=== PATIENT | female | born 1990 | race Caucasian/White ===

== ENCOUNTER 2024-08-15 10:21 | Inpatient (IN) | payer MEDICAID, SELFPAY ==
--- NOTE | 2024-08-12 16:38 | ESHP_ITS ---
RE: TAM SAGE : 1990 DATE OF ADMISSION: 08/15/2024 HISTORY OF PRESENT ILLNESS: This is a 34-year-old 6 para 2-0-3-2 with a due date of 08/21 with intrauterine at 39 weeks and one day on August 15, who presents for repeat delivery. She is multiparous and also desires voluntary sterilization. Her care was complicated by new onset of hyperthyroidism in the first trimester, which resulted in multiple hospital treatments for hyperemesis gravidarum. She was initially put on PTU in the first trimester and then switched over to methimazole where she has been under the care of an coke still cleaner. She is currently taking methimazole 2.5 mg daily. She has had adequate interval growth throughout the with the most recent ultrasound on 07/24 showing growth at the 37th percentile. MEDICATIONS: 1. vitamin 1 p.o. daily 2. Aspirin 81 mg one p.o. daily 3. Methimazole 2.5 mg one p.o. daily 4. Ferrous sulfate 325 mg one p.o. daily PAST MEDICAL HISTORY: Hyperthyroidism, hyperemesis gravidarum, iron-deficiency anemia, recurrent loss. PAST SURGICAL HISTORY: delivery 08/2023. FAMILY HISTORY: Maternal grandmother, breast cancer, hypertension, and obesity. Mother diabetes, depression, anxiety, migraine headaches, hypertension, and obesity. OBSTETRIC HISTORY: 2007, 5 weeks spontaneous AB, no D and C. 2014, 40-week normal vaginal delivery, 7-pound male. No complications. 2021, 5 weeks spontaneous AB, no D and C. 08/2022, 5 weeks spontaneous AB, no D and C. 09/08/2023, 40-week, delivery, 8 pound, 15-ounce male. No complications. REVIEW OF SYSTEMS: She denies any chest pain, palpitations, cough, fever, shortness of breath, or lower extremity pain. PHYSICAL EXAMINATION: VITAL SIGNS: Blood pressure 110/74, heart rate 84, respirations 18, temperature 98.6. HEENT: Oropharynx and sclerae are clear. LUNGS: Clear to auscultation bilaterally. HEART: Regular rate and rhythm. ABDOMEN: Gravid term size. Old Pfannenstiel scar noted. PELVIC: Deferred. EXTREMITIES: Nontender. SKIN: No gross rashes or lesion. NEUROLOGIC: No focal deficit. ASSESSMENT: Intrauterine at 39 weeks and one day. Previous delivery. Elects repeat delivery. Multiparity desires voluntary sterilization. PLAN: Repeat delivery and bilateral tubal ligation. Informed consent was obtained. The patient was made aware of the risks, complications, alternatives, and benefits of the proposed procedure and she agrees. She is aware of the failure rate and the increased risk of tubal ectopic gestation if occurs. She is aware that vasectomy has a lower failure rate but her male partner declines that option. DT: 12:39:47 TT: 15:34:00 Ref: [id number] - TID: [id number] [facility]
[2024-08-14 13:12] LABS: Basophils # (Auto) 0.1 Thou/mm3 (0.0-0.2); Basophils % (Auto) 1 % (0-2.5); Eosinophils # (Auto) 0.1 Thou/mm3 (0.0-0.5); Eosinophils % (Auto) 2 % (0-10); Hematocrit 34.9 % (36.0-46.0); Hemoglobin 10.7 g/dL (12.0-16.0); Immature Granulocytes % (Auto) 1 % (0-0); Immature Granulocytes Auto 0.11 Thou/mm3 (0.00-0.00); Lymphocytes # (Auto) 1.4 Thou/mm3 (1.0-4.8); Lymphocytes % (Auto) 17 % (10-50); Mean Corpuscular HGB Conc 30.7 g/dl (31.0-37.0); Mean Corpuscular Hemoglobin 24.3 pg (25.0-35.0); Mean Corpuscular Volume 79 fL (80-100); Monocytes # (Auto) 0.6 Thou/mm3 (0.0-0.8); Monocytes % (Auto) 7 % (0-12); Neutrophils # (Auto) 5.8 Thou/mm3 (1.8-7.7); Neutrophils % (Auto) 72 % (37-80); Nucleated Red Blood Cell % 0 /100 WBC (0); Platelet Count 187 Thou/mm3 (140-440); RDW Standard Deviation 62.1 fL (36.4-46.3); Red Blood Count 4.41 Miln/mm3 (4.00-5.20)
[2024-08-14 13:40] LABS: INR 0.9 (0.9-1.3); Partial Thromboplastin Time 23.7 Seconds (22.0-36.0); Prothrombin Time 10.2 Seconds (9.0-12.2)
[2024-08-14 16:00] LABS: Alanine Aminotransferase 10 U/L (10-49); Albumin, Serum 3.7 gm/dL (3.5-5.0); Albumin/Globulin Ratio 1.3 (1.2-2.2); Alkaline Phosphatase 189 U/L (46-116); Anion Gap 10 (7-16); Aspartate Amino Transferase 17 U/L (0-34); BUN/Creatinine Ratio 10 Ratio (12-20); Bilirubin,Total 0.9 mg/dL (0.3-1.2); Blood Urea Nitrogen 6 mg/dL (9-23); Calcium 8.7 mg/dL (8.3-10.6); Calcium (Corrected) 8.9 mg/dL (8.5-10.1); Carbon Dioxide 22.1 mMol/L (20.0-31.0); Chloride 104 mMol/L (98-107); Creatinine (Component) 0.6 mg/dL (0.6-1.3); Globulin 2.9 gm/dL (2.3-3.5); Glucose 103 mg/dL (74-106); Osmolality,Calculated 269 (275-295); Potassium 3.7 mMol/L (3.4-5.1); Sodium 136 mMol/L (136-145); Thyroid Stimulating Hormone 0.74 uIU/mL (0.55-4.78); Total Protein 6.6 gm/dL (5.7-8.2); eGFR > 60 See Note
[2024-08-15] VITALS (32 sets, daily range): BP systolic 107–130; BP diastolic 68–88; PULSE 80–100; RESP 14–19; TEMP 36.4–36.9; O2SAT 96–100; BMI 34.4
[2024-08-15] MEDS: RINGERS LACTATED 1000 ML 1,000 ML 100 ML IV ×3 (11:04→12:19)
[2024-08-15] MEDS: FAMOTIDINE INJ 10 MG/ML VIAL 2 ML 20 MG IV (12:20)
[2024-08-15] MEDS: METOCLOPRAMIDE INJ 5 MG/ML VIAL 2 ML 10 MG IVP (12:21)
[2024-08-15] MEDS: ceFAZolin/D5W 2 GM IV 2 GM/100 ML BAG IV (12:21)
--- NOTE | 2024-08-15 13:37 | OBDSUM_ITS ---
Data (Loving) Data Hx Section: Yes : 6 Para: 2 Term: 2 : 0 : 3 Delivery Data (Loving) Labor Data ROM Date: 08/15/24 ROM Time: 13:00 Rupture Type: AROM Amniotic Fluid: Clear Delivery Data EDC: 08/21/24 EDC calculated by:: LMP/early US confirmation Labor Onset Stage 1 Date: 08/15/24 Labor Onset Stage 1 Time: 13:00 Labor Onset Stage 2 Date: 08/15/24 Labor Onset Stage 2 Time: 13:00 Delivery Date: 08/15/24 Delivery Time: 13:00 Gestational age (weeks): 39 Gestational age (days): 1 Placenta Delivery Date: 08/15/24 Placenta Delivery Time: 13:01 Delivered by: Neo Sesay Delivery nurse: Neisha Greenwood Other staff at delivery: Nursery Nurse Other staff at delivery: Vendor Relationship Manager Other staff at delivery: Other staff at delivery: Scrub Other staff at delivery: Alison Chavarria Other staff at delivery: Nneka Guerra Other staff at delivery: FELICIA Other staff at delivery: YARA Delivery Method Delivery: Delivery Type: Repeat Presentation: Vertex Position: OA Anesthesia Type Primary Anesthesia: Spinal Placenta Placenta Delivery: Manual EBL Estimated blood loss (ml): 500 Umbilical Cord Umbilical Vessels: 3 Nuchal Cord: None Additional Procedures Vacuum assisted delivery with Mity Vac (see OP note) Complications Complications: None [place] Data (Loving) Data Gender: Female Infant Weight Grams: 3245 1 Minute Total: 9 5 Minute Total: 9
--- NOTE | 2024-08-15 13:45 | PD.LDDS ---
DS: Providers Provider Date of admission: 08/15/24 10:21 Primary care physician: Drake Hidalgo MD Admitting Provider: Neo Sesay MD Attending Provider on Admission: Neo Sesay MD Attending Provider on DC: Neo Sesay MD Discharging Provider: Neo Sesay MD DS: Diagnosis Problem List Completed Was Problem List Reviewed/Reconciled?: Yes Summary/Hosp Course Time Spent with Patient Time attestation: Total time spent providing and/or coordinating discharge services: Exam Vital Signs Temp Pulse Resp BP Pulse Ox 98.2 F 93 16 116/80 98 08/15/24 10:57 08/15/24 10:54 08/15/24 10:57 08/15/24 10:54 08/15/24 12:25 Discharge Plan Plan Patient Disposition: HOME (Self Care) Patient condition on transfer: Stable Prescriptions/Referrals Prescriptions/Med Rec: New ibuprofen 600 mg tablet 600 mg PO Q6H PRN (Reason: pain) Qty: 30 0RF Continued vit-ferrous sulfat-FA 27 mg iron- 0.8 mg Tablet 1 tab PO QDAY ferrous sulfate 325 mg (65 mg iron) tablet 325 mg PO QDAY methimazole 5 mg tablet 5 mg PO QDAY Discontinued aspirin 81 mg tablet,delayed release (DR/EC) 81 mg PO QDAY Referrals: Drake Hidalgo MD [Primary Care Provider] - Patient/Caregiver Discharge Instructions Discharge Activity: activity as tolerated Other Discharge Activity Instructions:: Follow up office 1 week. Continue Methimazole at 2.5 mg daily Education Materials: Breast Care After , After a , C Section Dc Print Language: Liberian Stand Alone Forms: Benita Award Info., Patient Portal Info Letter Discharge Order Discharge Orders: Discharge (Routine); Ordered 08/17/24 Ordered By: Neo Sesay Planned Discharge Date 08/17/24
[2024-08-15] MEDS: OXYTOCIN in NS 20 units 20 UNIT/1,000 ML BAG 125 UNIT IV ×2 (14:19→21:55)
[2024-08-15 17:02] LABS: Syphilis Nonreactive (Nonreactive)
--- NOTE | 2024-08-15 17:48 | ESOP_ITS ---
RE: TAM SAGE : 1990 DATE OF OPERATION: 08/15/2024 PREOPERATIVE DIAGNOSES: 1. Intrauterine at 39 weeks and 1 day. 2. Previous delivery elects repeat delivery. 3. Multiparity. Desires voluntary sterilization. POSTOPERATIVE DIAGNOSES: 1. Intrauterine at 39 weeks and 1 day. 2. Previous delivery, elects repeat delivery. 3. Multiparity. Desires voluntary sterilization. PROCEDURE PERFORMED: Repeat low transverse section via Pfannenstiel skin incision and bilateral salpingectomy. SURGEON: Neo Sesay DO MECHANICAL MANUFACTURING ENGINEER: MAYITO Smith ANESTHESIA: Spinal. ANESTHESIOLOGIST: Alf Palmer CRNA ESTIMATED BLOOD LOSS: 500 mL COMPLICATIONS: None. COUNTS: Correct. PATHOLOGY: Bilateral fallopian tubes. FINDINGS: A live female infant. Apgars 9/9. Weight 3245 g. Clear amniotic fluid, cephalic. Placenta removed completely intact. Uterus, ovaries, fallopian tubes grossly within normal limits. DESCRIPTION OF PROCEDURE: After proper informed consent was obtained and the patient was made aware of the risks, complications, alternatives, and benefits of the proposed procedure, she was taken to the operating room where she underwent induction of spinal anesthesia. She was placed in the dorsal supine position with leftward tilt. She was prepped and draped in the usual sterile fashion. A timeout was performed. A Pfannenstiel skin incision was made with scalpel, carried through to the underlying layer of fascia with the Bovie. The fascia was nicked in the midline, incision extended bilaterally with the Bovie. The inferior aspect of the fascia incision was grasped with Bandar clamps and elevated. The underlying rectus muscle was dissected off with the Bovie. The rectus muscle was at the midline. The peritoneum was identified between two Moncada clamps and entered sharply with Metzenbaum scissors. The incision was extended superiorly and inferiorly with good visualization of the bladder. The bladder blade was inserted. Vesicouterine peritoneum was incised transversely and the bladder flap created digitally. The bladder blade was reinserted. The lower uterine segment was incised in transverse fashion with the scalpel. The incision was extended bilaterally digitally. The 's head was unable to be delivered through the low transverse incision, so a Mityvac vacuum was placed 3 cm forward over the posterior fontanelle, over the sagittal suture, and on the first traction attempt, the head delivered. The mouth and nose suctioned with the bulb suction. Shoulders delivered atraumatically. The cord was clamped and cut. The was handed off to the waiting pediatric staff. Cord blood and gases were sent. The placenta was then removed manually. The uterus was exteriorized and cleared off all clots and debris. The uterine incision was repaired with #1-0 chromic catgut suture in a running locking fashion. Second layer of same suture was used to imbricate the first layer and obtained excellent hemostasis. The lower uterine segment was found to be hemostatic and attention was then turned to the right fallopian tube, which was grasped with a [place] clamp and using the ENSEAL X1 Large Jaw the right salpingectomy was performed, hemostasis was achieved. Attention was then turned to the left fallopian tube, which was grasped with the [place] clamp at the left fimbriated end and using the ENSEAL X1 Large Jaw a left salpingectomy was performed and hemostasis was achieved. The uterus was returned to the abdomen. The gutters were cleared of all clots and debris. Both adnexa and the lower uterine segment were hemostatic and peritoneum closed with 0- chromic catgut suture in running fashion. The muscle was closed with 0-chromic catgut suture in running fashion. The fascia was closed with 0 Vicryl beginning at each angle and ending in center in running fashion. Subcutaneous tissue was irrigated with normal saline solution and found to be hemostatic and closed with 2-0 chromic catgut suture in running fashion. The skin was closed with 4-0 Monocryl. Dermabond Prineo dressing was applied. A sterile pressure dressing was applied. She tolerated the procedure well. Counts were correct. I discussed with the patient the nature of her condition, intraoperative findings, expectations for recovery. All questions answered. DT: 13:45:12 TT: 17:46:00 Ref: [id number] - TID: [id number] [facility]
[2024-08-15 20:12] LABS: Basophils # (Auto) 0.1 Thou/mm3 (0.0-0.2); Basophils % (Auto) 1 % (0-2.5); Eosinophils # (Auto) 0.1 Thou/mm3 (0.0-0.5); Eosinophils % (Auto) 0 % (0-10); Hematocrit 32.9 % (36.0-46.0); Hemoglobin 10.1 g/dL (12.0-16.0); Immature Granulocytes % (Auto) 1 % (0-0); Immature Granulocytes Auto 0.12 Thou/mm3 (0.00-0.00); Lymphocytes # (Auto) 1.3 Thou/mm3 (1.0-4.8); Lymphocytes % (Auto) 10 % (10-50); Mean Corpuscular HGB Conc 30.7 g/dl (31.0-37.0); Mean Corpuscular Volume 78 fL (80-100); Monocytes % (Auto) 8 % (0-12); Neutrophils # (Auto) 10.4 Thou/mm3 (1.8-7.7); Neutrophils % (Auto) 81 % (37-80); Nucleated Red Blood Cell % 0 /100 WBC (0); Platelet Count 143 Thou/mm3 (140-440); RDW Standard Deviation 61.1 fL (36.4-46.3); White Blood Count 12.9 Thou/mm3 (3.6-11.0)
[2024-08-15] MEDS: METHIMAZOLE 5 MG TABLET 2.5 MG PO (21:53)
[2024-08-15] MEDS: KETOROLAC INJ 30 MG/ML VIAL IVP (21:54)
[2024-08-16 00:30] VITALS: BP 105/67; PULSE 90; RESP 16; TEMP 36.9; O2SAT 95
[2024-08-16 04:00] VITALS: BP 109/66; PULSE 100; RESP 18; TEMP 36.8; O2SAT 94
[2024-08-16] MEDS: SIMETHICONE 80 MG CHEW PO ×2 (07:13→17:50)
[2024-08-16] MEDS: Milk Of Magnesia Susp 30 ML UDC PO (07:13)
[2024-08-16] MEDS: KETOROLAC INJ 30 MG/ML VIAL IVP (07:13)
--- NOTE | 2024-08-16 07:18 | ESPR_ITS ---
RE: TAM SAGE : 1990 DATE OF SERVICE: 08/16/2024 SUBJECTIVE: Postoperative day #1, the patient denies any problems or complaints. She is voiding. She is ambulating. She is tolerating diet. She is passing flatus. She denies any excessive vaginal bleeding. She denies any dizziness or lightheadedness. She denies any chest pain, palpitations, shortness of breath, or lower extremity pain. She denies any jitteriness, anxiety, diarrhea, flushing, or any signs or symptoms of thyroid storm. OBJECTIVE: Vital Signs: Blood pressure 109/66, heart rate 100, respirations 18, temperature is 98.3, pulse is 94% on room air. Lungs: Clear to auscultation bilaterally. Heart: Regular rate and rhythm. Abdomen: Dressing dry and intact. Fundus is firm. Extremities: Nontender. LABORATORY DATA: Hemoglobin pre-delivery is 10.7, post-delivery 10.1. ASSESSMENT: 1. Postop day #1 status post delivery and bilateral salpingectomy. 2. Hyperthyroidism. PLAN: Remove dressing. Discontinue IV. Encourage ambulation. Continue methimazole 2.5 mg one p.o. daily. Okay to breastfeed. Possible discharge home tomorrow. DT: 06:47:06 TT: 07:16:00 Ref: [id number] - TID: [id number]
[2024-08-16 07:35] VITALS: BP 108/69; PULSE 104; RESP 18; TEMP 37; O2SAT 96
[2024-08-16 12:00] VITALS: BP 116/72; PULSE 101; RESP 19; TEMP 36.9; O2SAT 96
[2024-08-16] MEDS: HYDROcodone/APAP 5/325 TABLET 1 TAB PO (12:11)
[2024-08-16] MEDS: IBUPROFEN TAB 400 MG TABLET 800 MG PO (17:48)
[2024-08-16 19:30] VITALS: BP 111/74; PULSE 105; RESP 18; TEMP 36.8; O2SAT 96
[2024-08-16] MEDS: METHIMAZOLE 5 MG TABLET 2.5 MG PO (21:10)
[2024-08-17 03:10] VITALS: BP 115/78; PULSE 98; RESP 16; TEMP 36.7; O2SAT 96
[2024-08-17] MEDS: IBUPROFEN TAB 400 MG TABLET 800 MG PO (03:17)
--- NOTE | 2024-08-17 05:53 | ESPR_ITS ---
RE: TAM SAGE : 1990 DATE OF SERVICE: 08/17/2024 SUBJECTIVE: Postoperative day #2, the patient denies any problem or complaints. She is voiding. She is ambulating. She tolerated diet. She is passing flatus. She denies any excessive vaginal bleeding. She denies any dizziness or lightheadedness. She denies any chest pain, palpitations, shortness of breath, or lower extremity pain. OBJECTIVE: Vital Signs: Blood pressure 115/78, heart rate 98, respirations 16, temperature is 98.1, pulse oximetry is 96% on room air. Lungs: Clear to auscultation bilaterally. Heart: Regular rate and rhythm. Abdomen: Fundus is firm. Incision clear and intact. Extremities: Nontender. ASSESSMENT: Postoperative day #2 status post delivery and bilateral tubal ligation. No evidence of thyroid storm. PLAN: Discharge home. Discharge instructions were given. Continue methimazole. Follow up in the office in one week. DT: 05:34:08 TT: 05:52:00 Ref: [id number] - TID: [id number]
[2024-08-17 08:30] VITALS: BP 101/66; PULSE 89; RESP 16; TEMP 36.9; O2SAT 96
[2024-08-17] MEDS: ACETAMINOPHEN 325 MG TABLET 650 MG PO (09:59)
== END 2024-08-17 11:42 | disposition home or self-care (01) | DRG 539 ==
LOC: S4SX 13:32 → S4NX 13:50
PROVIDERS: Admitting Provider Specialist; PCP Family Medicine; Visit Provider Specialist
PROC: 10D00Z1 Extraction of Products of Conception, Low, Open Approach (ICD-10-PCS; CPT 59514; principal; 2024-08-15 07:30)
DX: O34.211 Maternal care for low transverse scar from previous cesarean delivery (principal); Z37.0 Single live birth; Z3A.39 39 weeks gestation of pregnancy; O99.284 Endocrine, nutritional and metabolic diseases complicating childbirth; E05.90 Thyrotoxicosis, unspecified without thyrotoxic crisis or storm; Z30.2 Encounter for sterilization; Z79.899 Other long term (current) drug therapy
CPT/HCPCS: 36415; 80053; 84439; 84443; 85025; 85610; 85730; 86780; 86850; 86900; 86901; 86923; A4649; J0689; J1885; J2210; J2274; J2371; J2590; J2765; J3010; J3490; J7120; A9270; J2270